=== PATIENT | male | born 1985 | race Caucasian/White ===

== ENCOUNTER 2024-04-11 20:36 | Emergency (ER) | payer OTHER ==
[2024-04-11 20:47] VITALS: BP 148/95; PULSE 57; RESP 17; TEMP 98.2; BMI 22.6
[2024-04-11] MEDS ORDERED: TOBRA 0.3%/DEXAMETH 0.1% OPHTHALMIC SUSP 2.5 ML BTL ONE (21:00)
[2024-04-11] MEDS: TOBRA 0.3%/DEXAMETH 0.1% OPHTHALMIC SUSP 2.5 ML BTL OU STA (21:03)
== END 2024-04-11 21:10 | disposition home or self-care (01) ==
LOC: FER 20:36
DX: H10.31 Unspecified acute conjunctivitis, right eye (principal)
CPT/HCPCS: 99283-25